=== PATIENT | female | born 1950 | race Caucasian/White ===

== ENCOUNTER 2017-07-23 14:51 | Observation (INO) | payer OTHER ==
[~2017-07-23] VITALS: Ht 157.5 cm; Wt 69.2 kg
[2017-07-23 17:05] LABS: EOSINOPHIL (%) 0.1 % (0-5); HEMATOCRIT 40.7 % (36.0-46.0); IMMATURE GRANULOCYTE (%) 0.3 % (0.0-0.7); INSTRUMENT ABS NEUTROPHIL CT 5.4 K/uL; LYMPHOCYTE COUNT 1.3 K/uL (1.0-2.8); MCH 32.3 PG (29.0-34.0); MCHC 33.2 G/DL (30.0-36.0); MCV 97.4 FL (83-99); MEAN PLAT.VOLUME 10.1 uM^3 (9.5-12.4); MONOCYTE (%) 6.9 % (3-12); MONOCYTE COUNT 0.5 K/uL (0-0.8); NEUTROPHIL (%) 74.5 % (45-76); NEUTROPHIL COUNT 5.4 K/uL (1.8-6.4); PLATELET COUNT 355 K/uL (156-360); RBC DIS.WIDTH-CV 12.5 % (11.8-14.6); RBC DIS.WIDTH-SD 45.2 % (39-53); RED BLOOD COUNT 4.18 M/uL (3.80-5.20); WHITE BLOOD COUNT 7.2 K/uL (4.1-10.2)
[2017-07-23 17:13] LABS: PTT 30.8 SEC (25-37)
[2017-07-23 17:15] LABS: CHLORIDE 106 mEq/L (99-109); POTASSIUM 4.2 mEq/L (3.7-5.4); SODIUM 141 mEq/L (136-147)
[2017-07-23 17:17] LABS: GLUCOSE 109 mg/dL (70-99)
[2017-07-23 17:18] LABS: ANION GAP 9 MEQ/L (2-14)
[2017-07-23 17:21] LABS: GFR ESTIMATE (CALCULATED) > 59 mL/min/
[2017-07-23 17:22] LABS: UREA NITROGEN (BUN) 13 mg/dL (9-23)
[2017-07-23 18:04] LABS: TOTAL CHOLESTEROL 228 mg/dL (Desirable<200); TRIGLYCERIDES 101 MG/DL (Normal: <150)
[2017-07-23 18:05] LABS: HDL CHOLESTEROL 67 MG/DL (Desirable>=50); LDL CHOLESTEROL 141 mg/dL (Desirable<100); NON-HDL CHOLESTEROL 161 mg/dL (Desirable<160)
[2017-07-23 19:14] LABS: Estimated Average Glucose 123 mg/dL (70-123); HEMOGLOBIN A1c (GLYCOHEMOGLOB) 5.9 % HGB (Below 5.7)
[2017-07-23 19:21] LABS: TROP-I INTERPRETATION NEGATIVE; TROPONIN-I < 0.01 ng/mL (0.0-0.30)
[2017-07-23] MEDS ORDERED: CENTRUM SILVER1 EAC3 PO (20:18)
[2017-07-23] MEDS ORDERED: FLUZONE HI180 MCG/08 IM (20:18)
[2017-07-23] MEDS ORDERED: CALTRATE 600 +1 EAC1 PO (20:18)
[2017-07-23] MEDS ORDERED: CITRACAL D + H1 EACH PO (20:18)
[2017-07-23] MEDS ORDERED: LO-DOSE ASPIRIN81 M1 PO (20:19)
[2017-07-23 21:40] LABS: EOSINOPHIL (%) 0.7 % (0-5); EOSINOPHIL COUNT 0.1 K/uL (0-0.3); HEMATOCRIT 39.5 % (36.0-46.0); IMMATURE GRANULOCYTE (%) 0.4 % (0.0-0.7); INSTRUMENT ABS NEUTROPHIL CT 4.5 K/uL; LYMPHOCYTE COUNT 2.1 K/uL (1.0-2.8); MCH 32.6 PG (29.0-34.0); MCHC 33.7 G/DL (30.0-36.0); MCV 96.8 FL (83-99); MEAN PLAT.VOLUME 10.1 uM^3 (9.5-12.4); MONOCYTE (%) 8.6 % (3-12); MONOCYTE COUNT 0.6 K/uL (0-0.8); NEUTROPHIL (%) 61.2 % (45-76); NEUTROPHIL COUNT 4.5 K/uL (1.8-6.4); PLATELET COUNT 342 K/uL (156-360); RBC DIS.WIDTH-CV 12.6 % (11.8-14.6); RBC DIS.WIDTH-SD 45.6 % (39-53); RED BLOOD COUNT 4.08 M/uL (3.80-5.20); WHITE BLOOD COUNT 7.4 K/uL (4.1-10.2)
[2017-07-23 21:45] LABS: PROTHROMBIN TIME 11.5 SEC (10.2-12.9)
[2017-07-23 21:47] LABS: CHLORIDE 106 mEq/L (99-109); POTASSIUM 3.9 mEq/L (3.7-5.4); PTT 31.2 SEC (25-37); SODIUM 140 mEq/L (136-147)
[2017-07-23 21:49] LABS: GLUCOSE 108 mg/dL (70-99)
[2017-07-23 21:50] LABS: ANION GAP 9 MEQ/L (2-14)
[2017-07-23 21:53] LABS: GFR ESTIMATE (CALCULATED) > 59 mL/min/
[2017-07-23 21:54] LABS: UREA NITROGEN (BUN) 11 mg/dL (9-23)
[2017-07-23 21:57] VITALS: BP 154/84
[2017-07-23 22:13] LABS: HDL CHOLESTEROL 65 MG/DL (Desirable>=50); LDL CHOLESTEROL 145 mg/dL (Desirable<100); NON-HDL CHOLESTEROL 162 mg/dL (Desirable<160); TOTAL CHOLESTEROL 227 mg/dL (Desirable<200); TRIGLYCERIDES 84 MG/DL (Normal: <150)
[2017-07-23 23:57] VITALS: BP 138/83
[2017-07-24 04:00] VITALS: BP 141/93
[2017-07-24 04:06] LABS: TROP-I INTERPRETATION NEGATIVE; TROPONIN-I < 0.01 ng/mL (0.0-0.30)
[2017-07-24 07:27] VITALS: BP 139/82
[2017-07-24 10:39] VITALS: BP 140/81
[2017-07-24 11:20] LABS: TROP-I INTERPRETATION NEGATIVE; TROPONIN-I < 0.01 ng/mL (0.0-0.30)
[2017-07-24 15:40] VITALS: BP 153/77
[2017-07-24 21:03] VITALS: BP 145/80
[2017-07-24 23:43] VITALS: BP 124/78
[2017-07-25 03:37] VITALS: BP 142/77
[2017-07-25 07:40] VITALS: BP 130/80
[2017-07-25] MEDS ORDERED: ATORVASTATIN CA40 MG PO (09:47)
[2017-07-25] MEDS ORDERED: LISINOPRIL10 MG PO (09:47)
== END 2017-07-25 10:28 | disposition home or self-care (01) ==
LOC: EME 14:51 → EDOF 20:36 → 5WEST 20:36 → ENRESERV 20:38 → 5WEST 21:44
PROVIDERS: Emergency Medicine; Internal Medicine
DX: I67.89 Other cerebrovascular disease (principal); I10 Essential (primary) hypertension; E78.2 Mixed hyperlipidemia; G56.20 Lesion of ulnar nerve, unspecified upper limb; Z23 Encounter for immunization; Z79.82 Long term (current) use of aspirin; Z79.899 Other long term (current) drug therapy; Z82.3 Family history of stroke; M81.0 Age-related osteoporosis without current pathological fracture
CPT/HCPCS: 70450; 70551; 71010; 80048; 80048 91; 80061; 83036; 84484; 85025; 85025 91; 85610; 85730; 93005; 93880; 99281; 99285; G0378